=== PATIENT | female | born 1965 | race Caucasian/White ===

== ENCOUNTER 2017-02-03 10:44 | Day surgery (SDC) | payer OTHER ==
--- NOTE | 2017-01-13 08:52 | HP ---
DATE OF ADMISSION: CHIEF COMPLAINT: Right neck mass. HISTORY OF PRESENT ILLNESS: Patient is a 51-year-old female seen in the office with history of complaints of a bulge in the right lower neck. This has been there for last 5 to 6 years but has been doubling in size. Mild discomfort at times. Never biopsied in the past. No drainage. No redness. Past medical history is hypertension. Past surgical history is ankle. MEDICATIONS: 1. Antihypertensive. 2. Diuretic. ALLERGIES: None. PHYSICAL EXAM: HEENT reveals a 3 to 3.5 cm subcutaneous mass right lower neck, mildly tender, somewhat fixed. CHEST: No deformities. ABDOMEN: Soft, nontender, nondistended. Extremities without edema. IMPRESSION: A 51-year-old female with right neck mass. PLAN: Will proceed with operative excision on 02/03. The risks of bleeding, infection, postoperative pain, scarring, numbness and recurrence. The patient understands and wishes to proceed.
[2017-02-02 10:54] VITALS: BMI 42.3
[~2017-02-03 10:44] MED LIST: DEXAMETHASONE SOD PHOSPHATE 10 MG/ML 1 ML VIAL IV ONE; HEPARIN SODIUM,PORCINE 5,000 UNIT/ML 1 ML VIAL SQ ONE; HYDROmorphone 1 MG/ML 1 ML SYRINGE IVP PRN; LACTATED RINGERS 1,000 ML IV SCH; MIDAZOLAM 2 MG/2 ML VIAL IV PRN; ONDANSETRON 4 MG/2 ML VIAL IVP ONE; Pre Op ABX Message 1 EACH MISC MISCELLANE ONE; SCOPOLAMINE 1.5MG/72HR PATCH TRANSDERM ONE
[2017-02-03] MEDS ORDERED: LIDOCAINE 1% 20 ML VIAL (10MG/ML) FOR IV START INTRADERMA ONE (11:25)
[2017-02-03 11:29] VITALS: TEMP 98.4
[2017-02-03 11:37] LABS: Potassium 4.4 mmol/L (3.5-5.1)
[2017-02-03] MEDS ORDERED: BUPIVACAIN-EPI 0.25%-1:200,000 30 ML VIAL SQ ONE ×2 (12:16)
[2017-02-03] MEDS ORDERED: KETAMINE 10 MG/ML 20 ML VIAL ONE (12:19)
[2017-02-03] MEDS ORDERED: PROPOFOL 10 MG/ML 20 ML VIAL IV ONE (12:19)
[2017-02-03] MEDS ORDERED: fentaNYL (PF) 50 MCG/ML 2 ML AMP ONE (12:19)
[2017-02-03] MEDS ORDERED: MIDAZOLAM 2 MG/2 ML VIAL ONE (12:19)
[2017-02-03] MEDS ORDERED: LIDOCAINE 1% INJ 10MG/ML (20 ML MDV) ONE (12:19)
[2017-02-03] MEDS ORDERED: NALOXONE 0.4 MG/ML 1 ML VIAL IV PRN (12:46)
[2017-02-03] MEDS ORDERED: HYDROcodone/APAP 5-325MG 1 EACH TAB PO PRN (12:46)
--- NOTE | 2017-02-03 12:48 | P.PCN ---
Date of Procedure: 02/03/17 Procedure(s) Performed: PREOPERATIVE DIAGNOSIS: Right neck lipoma POSTOPERATIVE DIAGNOSIS: Same PROCEDURE: Excision SURGEON: Mildred EBL: Minimal ANESTHESIA: Mac COMPLICATIONS: None OPERATIVE PROCEDURE: Patient was placed in the left decubitus position. The posterior neck was prepped and draped in the usual sterile fashion. The skin was localized with Marcaine. A horizontal incision was made over the palpable mass. Dissection through the saphenous tissues took place using electrocautery. The patient's lipomatous mass was then removed with primarily blunt dissection. This measured approximately 3.5 cm in size. This was sent to pathology for close examination. No additional suspicious lipomatous tissue was seen. The subcutaneous tissues were closed using 3-0 Vicryl sutures. The skin was closed using interrupted 4-0 Monocryl sutures. Steri-Strips and sterile dressings applied. DISPOSITION: Stable to recovery room
[2017-02-03 12:57] VITALS: RESP 16
[2017-02-03 13:10] VITALS: BP 131/78; PULSE 64
== END 2017-02-03 13:49 | disposition home or self-care (01) ==
LOC: OR 10:44
PROVIDERS: ATTEND Surgery
DX: D17.0 Benign lipomatous neoplasm of skin and subcutaneous tissue of head, face and neck (principal); I10 Essential (primary) hypertension; E07.9 Disorder of thyroid, unspecified; Z79.899 Other long term (current) drug therapy
CPT/HCPCS: 93005; 81025; 88304; 80051; 21552; J2250; J1644; J1100; J2405; J2001; J3010; J2704

== ENCOUNTER → 2017-09-01 | Outpatient (CLI) | payer OTHER ==
--- NOTE | 2017-09-02 16:05 | US ---
EXAMINATION TYPE: US thyroid st tissue head/neck DATE OF EXAM: 09/01/2017 COMPARISON: FNA of 12/25/2015. Performed here, no prior ultrasound of thyroid CLINICAL HISTORY: E04.1 Non Toxic Singular Thyroid Nodule. GLAND SIZE: Right Lobe: 5.3 x 2.1 x 2.7 cm Overall Parenchyma: homogenous Left Lobe: 5.4 x 1.7 x 2.1 cm Overall Parenchyma: heterogeneous Isthmus Thickness: 0.4 cm NODULES RIGHT: # of nodules measured on right: 1 1. 3.5 X 1.6 x 2.3 cm hypoechoic solid nodule at the mid pole with well-defined margins; present wi th microcalcifications. This nodule is wider than tall and shows intranodular vascularity. Prior size: only FNA done here. This measured 2.2 x 1.8 x 2.9 cm at the time of biopsy of 6. LEFT: # of nodules measured on left: 1 1. 0.9 X 0.6 x 0.6 cm isoechoic solid nodule at the upper pole with poorly defined margins; . This nodule is wider than tall and shows intranodular vascularity. Prior size: ISTHMUS: # of nodules measured in the isthmus: 0 Bilateral neck scanned, no evidence of lymphadenopathy. Rt lobe has a dominant nodule, with a small cystic area noted lower pole. Left lobe is diffusely hete rogeneous. IMPRESSION: 3.5 cm right thyroid nodule, previously biopsied. This has increased in size from the data biopsy of 12/25/2015. Correlation with previous pathologic diagnosis is recommended. Isoechoic left thyroid nodu le is subcentimeter and surveillances recommended.
== END ==
LOC: RADUSWWP 16:21
PROVIDERS: ATTEND Internal Medicine
DX: E04.1 Nontoxic single thyroid nodule (principal)
CPT/HCPCS: 76536

== ENCOUNTER 2017-10-27 12:05 | Day surgery (SDC) | payer OTHER ==
[2017-10-27 13:24] VITALS: RESP 16; TEMP 98.2
[2017-10-27 13:25] VITALS: BP 129/76; PULSE 75
--- NOTE | 2017-10-27 13:53 | US ---
ULTRASOUND GUIDED FNA THYROID BIOPSY: CLINICAL HISTORY: Large right thyroid nodule FINDINGS: The procedure was explained to the patient. The risks, complications, benefits and alternatives were discussed and any questions were answered. Informed consent was obtained. Patient was placed supin e on the ultrasound table and prepped and draped in the usual sterile fashion. Utilizing a 25 gauge needle, five passes were made into the requested right thyroid nodule. Patient was stable throughout the procedure. Pathology is pending. All elements of maximal barrier technique were utilized. IMPRESSION: 1. Successful ultrasound guided FNA thyroid biopsy.
== END 2017-10-27 13:20 | disposition home or self-care (01) ==
LOC: RADPROMAIN 12:05
PROVIDERS: ATTEND Otolaryngology Plastic Surgery within the Head & Neck
DX: E04.1 Nontoxic single thyroid nodule (principal)
CPT/HCPCS: 10022; 76942; 88173; 88305